=== PATIENT | female | born 1995 | race African-American/Black ===

== ENCOUNTER 2016-05-21 22:20 | Emergency (ER) | payer OTHER ==
--- NOTE | 2016-05-21 23:26 | PROVIDER DOCUMENTATION ---
HPI-Headache <Johnathan Kovacs - Last Filed: 05/22/16 00:06> - General Source: patient - History of Present Illness-Headache Headache Location: reports: frontal Quality of Pain: reports: pressure Severity: reports: mild Onset/Duration: reports: this afternoon Timing: reports: still present Headache severity at the maximum: mild Associated Symptoms: reports: headache Similar Symptoms Previously?: No Recently seen or treated by another doctor?: No <Alison Haile - Last Filed: 05/22/16 02:51> - General Chief Complaint: Headache Stated Complaint: PRESSURE IN HEAD,SEEING SPOTS Time Seen by Provider: 05/21/16 23:12 Allergies/Adverse Reactions: Patient Allergies Allergy/AdvReac Type Severity Reaction Status Date / Time No Known Allergies Allergy Verified 09/30/14 18:14 Home Medications: Home Medication List Medication Instructions Recorded Confirmed Last Taken Type Amoxicillin/Pot Clavulanate 875 mg PO Q12HR #14 tablet 05/22/16 Unknown Rx [Augmentin] Ibuprofen [Motrin] 800 mg PO Q8H PRN PRN #20 tablet 05/22/16 Unknown Rx Omeprazole [Prilosec] 20 mg PO DAILY@0700 #20 capsule 05/22/16 Unknown Rx - History of Present Illness-Headache Nature of Presenting Problem: 21 year old F presents to the ED with a cc of a headache and seeing spots with movement. Pt denies nausea and vomiting. (Alison Haile) Review of Systems - Adult - REVIEW OF SYSTEMS - ADULT Constitutional: reports: no symptoms reported Eyes: denies: blurred vision, double vision Ears, Nose, Mouth & Throat: denies: ear pain, throat pain Cardiovascular: reports: no symptoms reported Respiratory: reports: no symptoms reported Gastrointestinal: reports: no symptoms reported Genitourinary: reports: no symptoms reported Musculoskeletal: reports: no symptoms reported Integumentary: reports: no symptoms reported Neurological: reports: headache/migraines. denies: dizziness/vertigo Psychiatric: reports: no symptoms reported Endocrine: reports: no symptoms reported Hematologic/Lymphatic: reports: no symptoms reported Allergic/Immunologic: reports: no symptoms reported All Other Systems: Reviewed and Negative <Alison Haile - Last Filed: 05/22/16 02:51> Past History - Adult - PAST MEDICAL HISTORY-ADULT Review of Records: reports: Nursing Assessment Review, Medications Reviewed Major Childhood Illnesses: reports: denies history Cardiovascular: reports: denies history Respiratory: reports: denies history Gastrointestinal: reports: denies history Obstetrical/Gynecological: reports: denies history Genitourinary: reports: denies history Musculoskeletal: reports: denies history Neurological: reports: denies history Endocrine/Immune: reports: denies history Other Conditions: reports: denies history - PRIOR SURGERIES/PROCEDURES Surgical/Procedure History: reports: other (breast reduction ) - IMMUNIZATION STATUS Childhood Immunizations: See Nurse Assessment Flu Vaccine: See Nurse Assessment - FAMILY HISTORY Family History: reviewed, not pertinent - SOCIAL HISTORY Smoking: cigarettes, less than 1 pack/day Provider spent 3-5 mins advising pt. on dangers of tobacco.: Discussed manners to quit use, and f/u contacts for add'l counseling. Substance Use: none/never Alcohol Use Frequency: occasionally <Alison Haile - Last Filed: 05/22/16 02:51> Physical Exam- Neurological - Physical Exam-Neuro Initial Vital Signs Reviewed: Yes General Appearance: appears well, alert, no apparent distress Head Injury: no evidence of injury Respiratory: chest non-tender, lungs clear, normal breath sounds Cardiovascular: normal peripheral pulses, regular rate, rhythm, no edema Extremity: normal inspection glass cut off tender Exam: normal hearing, normal speech, PERRL Integumentary: normal color, normal turgor, warm/dry Psych/Mental Status: normal mood/affect, normal thought content, normal thought process, oriented x 3 <Alison Haile - Last Filed: 05/22/16 02:51> Progress <Johnathan Kovacs - Last Filed: 05/22/16 00:06> <Alison Haile - Last Filed: 05/22/16 02:51> - PLAN OF CARE/RESULTS Progress/Plan/Lab Results: Orders Category Date Time Status ED: Orthostatic Vital Signs (E as directed Care 05/21/16 23:28 Active Dexamethasone [Decadron] Med 05/21/16 23:49 Discontinued 10 mg .ROUTE .STK-MED ONE Dexamethasone [Decadron] Med 05/21/16 23:28 Discontinued 10 mg IM NOW ONE Ibuprofen [Motrin] Med 05/21/16 23:50 Discontinued 800 mg .ROUTE .STK-MED ONE Ibuprofen [Motrin] Med 05/21/16 23:28 Discontinued 800 mg PO NOW ONE Vital Signs - 24 hr 05/21/16 05/21/16 05/22/16 22:31 23:59 00:04 Temperature 98.5 F 98.9 F Pulse Rate 120 H Pulse Rate [ 89 Sitting] Pulse Rate [ 99 H Standing] Respiratory 18 Rate Blood Pressure 140/90 Blood Pressure 134/91 [Sitting] Blood Pressure 150/99 [Standing] O2 Sat by Pulse 100 99 Oximetry (Johnathan Kovacs) Departure - Departure Time of Disposition Order: 00:06 Certified Medical Emergency: Emergent <Johnathan Kovacs - Last Filed: 05/22/16 00:06> - Departure Certified Medical Emergency: Emergent <Alison Haile - Last Filed: 05/22/16 02:51> - Departure DIAGNOSIS: Sinus headache Sinusitis Qualifiers: Sinusitis location: frontal Chronicity: acute Recurrence: non-recurrent Qualified Code(s): J01.10 - Acute frontal sinusitis, unspecified Disposition: HOME 01 Condition: Stable Additional Instructions: ED Follow Up Instructions: You have been treated by a care provider in the Emergency Department. These instructions are being provided to you so you can have an understanding of how to care for yourself upon discharge. Upon discharge from the Emergency Department, you are responsible for making arrangements for follow-up care by a physician of your choice. Take all prescribed medications as directed. Return to the Emergency Department immediately for any new or worsening symptoms. You may call the Physician Referral phone number at [phone] to obtain a list of Physicians who are taking new patients. Prescriptions: Amoxicillin/Pot Clavulanate [Augmentin] 875 mg PO Q12HR #14 tablet Ibuprofen [Motrin] 800 mg PO Q8H PRN PRN #20 tablet PRN Reason: inflammation Omeprazole [Prilosec] 20 mg PO DAILY@0700 #20 capsule Referrals: None,PCP [Primary Care Provider] - Melecio Weeks MD [STAFF PHYSICIAN] - Forms: Return to School/Parent Work Instructions: Migraine Headache, [id number], Amoxicillin capsules or tablets , Ibuprofen tablets and capsules, Omeprazole tablets (OTC) Attestation - Physician/ GORDO Attestation Patient care was provided by Advanced Practice Provider:: Yes Advanced Practice Provider:: Johnathan Kovacs Advanced Practice Provider documentation review:: The Mid-level provider documentation, treatment plan and medical decision making was reviewed by the physician who agrees with all treatment and medical decision making by the MLP. <Johnathan Kovacs - Last Filed: 05/22/16 00:06> - Scribe Verification/Attestation Scribe:: Alison Haile Acting as Scribe for:: Johnathan Kovacs Scribe documention review:: This chart was documented by a scribe and accurately reflects the service the provider performed and the decisions made by the provider. <Alison Haile - Last Filed: 05/22/16 02:51> Physician Attestation
[2016-05-21] MEDS ORDERED: DECADRON IM ONE (23:28)
[2016-05-21] MEDS ORDERED: MOTRIN PO ONE (23:28)
[2016-05-21] MEDS ORDERED: DECADRON ONE (23:49)
[2016-05-21] MEDS ORDERED: MOTRIN ONE (23:50)
[2016-05-22 00:04] VITALS: BP 134/91
== END 2016-05-22 00:27 | disposition home or self-care (01) ==
LOC: P.ED 22:20
DX: J01.10 Acute frontal sinusitis, unspecified (principal); R51 Headache; F17.210 Nicotine dependence, cigarettes, uncomplicated; Z71.6 Tobacco abuse counseling
CPT/HCPCS: 96372